=== PATIENT | male | born 1970 | race Caucasian/White ===

== ENCOUNTER 2021-07-01 20:55 | Emergency (ER) | payer BC ==
[2021-07-01 21:12] VITALS: BP 141/95; PULSE 60; RESP 18; TEMP 97.1
--- NOTE | 2021-07-01 21:31 | ED ---
ENT HPI - General Chief complaint: ENT Stated complaint: Possible Food stuck in throat Time Seen by Provider: 07/01/21 21:31 Source: patient Mode of arrival: ambulatory Limitations: no limitations - History of Present Illness Initial comments: Nilesh is a 50-year-old male with a history of eosinophilic esophagitis, history of food bolus in the esophagus requiring endoscopy in the past. Patient reports that he was eating chicken for dinner and felt it get stuck. He is tolerating his oral secretions but states he can feel that the chicken is stuck in his throat. He's not had any chest pain or shortness of breath. He did go to an outside hospital and was told they do have GI available so came here for second opinion. - Related Data Allergies Allergy/AdvReac Type Severity Reaction Status Date / Time No Known Allergies Allergy Verified 07/01/21 21:12 Review of Systems ROS Statement: Those systems with pertinent positive or pertinent negative responses have been documented in the HPI. ROS Other: All systems not noted in ROS Statement are negative. Past Medical History Past Medical History: No Reported History Additional Past Medical History / Comment(s): EOE History of Any Multi-Drug Resistant Organisms: None Reported Additional Past Surgical History / Comment(s): EOE. back surgery Past Psychological History: No Psychological Hx Reported Smoking Status: Never smoker Past Alcohol Use History: Occasional Past Drug Use History: None Reported General Exam - General Exam Comments Initial Comments: Physical Exam GENERAL: Patient is well-developed and well-nourished. Patient is nontoxic and well-hydrated and is in no distress. HENT: Normocephalic, Atraumatic. EYES: PERRL, EOMI PULMONARY: Unlabored respirations. CARDIOVASCULAR: RRR Warm and well perfused extremities ABDOMEN: Non-distended SKIN: No rashes or bruising : Deferred NEUROLOGIC: Alert and oriented Normal speech Normal gait MUSCULOSKELETAL: Moving all extremities with no apparent injury PSYCHIATRIC: No SI/HI Limitations: no limitations Course Vital Signs 07/01/21 21:06 Temperature 97.1 F L Pulse Rate 60 Respiratory 18 Rate Blood Pressure 141/95 O2 Sat by Pulse 97 Oximetry Medical Decision Making - Medical Decision Making Patient was seen and evaluated, history was obtained from the patient and at bedside. Patient with a history of esophageal food impaction and esophagitis. Patient reports feeling as though these of chicken got stuck. He is tolerating her own secretions he is in no acute distress. I advised the patient we also do not have GI non linear editor this weekend however I can do a full wo rkup including x-rays lab work given pain medication in arrange for transport to another hospital however patient states he doesn't feel is necessary does need pain medications he will call his sign writer letterer or painter in the morning. Disposition Clinical Impression: Esophageal obstruction due to food impaction Disposition: HOME SELF-CARE Condition: Stable Is patient prescribed a controlled substance at d/c from ED?: No Referrals: Lonnie Snow MD [Primary Care Provider] - 1-2 days
== END 2021-07-01 21:35 | disposition home or self-care (01) ==
LOC: EC 20:55
DX: T18.128A Food in esophagus causing other injury, initial encounter (principal); W45.8XXA Other foreign body or object entering through skin, initial encounter
CPT/HCPCS: 99283